=== PATIENT | male | born 1980 | race African-American/Black ===

== ENCOUNTER 2016-12-01 19:55 | Emergency (ER) | payer MEDICAID ==
--- NOTE | 2016-12-01 21:26 | EDPHY ---
H & P Stated Complaint: abd pain, nausea - Personal History Current Tetanus Diphtheria and Acellular Pertussis (TDAP): Yes - Medical/Surgical History Hx Asthma: No Hx Chronic Respiratory Disease: No Hx Diabetes: No Hx Cardiac Disease: No Hx Renal Disease: No Hx Cirrhosis: No Hx Alcoholism: No Hx HIV/AIDS: No Hx Splenectomy or Spleen Trauma: No Other PMH: denies - Social History Smoking Status: Heavy smoker HPI/ROS: CHIEF COMPLAINT: Abdominal pain HISTORY OF PRESENT ILLNESS: This patient is a 35 year old male complaining of nausea onset one hour ago. He has not vomited. He denies fever or diarrhea. He did have mild abdominal pain earlier, but this has since resolved. He denies history of abdominal surgery. He denies eating any usual foods. He lives in [place] but is currently staying at the [facility]. He denies chest pain, shortness of breath, headache, urinary complaints, or other associated symptoms. REVIEW OF SYSTEMS: A ten point review of systems was performed and is negative with the exception of the items mentioned in the HPI. Past medical history: 1. Depression (Wellbutrin) 2. Acid reflux Past surgical history: Denies Family history: Noncontributory Social history: Current every day tobacco use (1 pack/day). Recently moved here from [place]. Staying at the [facility]. General Appearance: Alert. Obese. Vital signs reviewed. Blood pressure 133/92. Eyes: Pupils equal and round, no conjunctival injection, no discharge. Anicteric. ENT, Mouth: Mucous membranes are moist, no oropharyngeal erythema or edema. Neck: No lymphadenopathy, supple. Respiratory: Lungs are clear to auscultation; no wheezes, rales, or rhonchi. Cardiovascular: Regular rate and rhythm; no murmur, rub, or gallop. Gastrointestinal: Mild epigastric tenderness. Abdomen is soft, no masses or organomegaly, bowel sounds normal. Skin: Warm and dry, no rashes on exposed skin, normal color. Back: Nontender to palpation over the thoracolumbar spine. No CVAT. Extremities: No lower extremity edema, no calf tenderness or swelling. Neurological: Alert and oriented. Moving all four extremities easily and equally. Psychiatric: Normal affect. (Pilar Rust) Constitutional: Initial Vital Signs Temperature (C) 37.1 C 10/20/17 20:16 Heart Rate 98 12/01/16 20:16 Respiratory Rate 20 12/01/16 20:16 Blood Pressure 133/92 H 12/01/16 20:16 O2 Sat (%) 97 12/01/16 20:16 O2 Delivery Mode Room Air Allergies/Adverse Reactions: Penicillins Allergy (Verified 12/01/16 20:15) Home Medications: Medication Instructions Recorded Gabapentin 12/01/16 Wellbutrin Sr 12/01/16 Medical Decision Making ED Course/Re-evaluation: 0304: Patient been seen evaluated by mental health. Plan for admission. Patient is voluntary. Depressed. Suicidal. Does not require an M1 hold. He would like bed placement. (Rudolph Acevedo) I took over care of this patient at 7:00 a.m.. This patient is voluntary. He is not on an M1 hold. The patient is here for suicidal ideation and depression. He is to be admitted. He is awaiting placement at this time. 2:30 p.m., patient has been seen and evaluated by Behavioral Health. He will be transferred to a [facility] in [place]. I have filled out the appropriate transfer paperwork. His remaining emergency department course under my care has been uneventful. He was transferred in good condition. (Aleksandra Sullivan) 35 y/o male presents with one hour history of nausea. No vomiting or abdominal pain. Mild epigastric tenderness on exam. Plan to administer 4mg PO Zofran, PO Pepcid. Patient mention to the nurse that he is feeling despondent over his brother's . I re-interviewed him. He tells me that this is the anniversary of his brothers . His brother was killed in 2010 at the age of 27. The patient has a history of depression. He informs me that he was hospitalized at [place] in May. He does not live in [place] but came here hoping that he could distract himself from the sadness that he is feeling today. However, he was not able to do so and he presents tonight feeling depressed and thinking of injuring himself. He has had 1 previous suicide attempt by overdose. He states that he would use this same method. He takes gabapentin and Wellbutrin for depression and is compliant with these medications. He contracts for safety but is requesting to speak with a mental health counselor. He denies the use of alcohol. He occasionally smokes marijuana but does not use other drugs. Labs will be done and mental health consulted. He contracts for safety and is not being placed on an M1 hold. He is here voluntarily. (Pilar Rust) Differential Diagnosis: I considered a differential diagnosis of midepigastric pain that includes but is not limited to gastritis, peptic ulcer disease, pancreatitis, cholecystitis. I do not think that this is his main concern tonight. His abdominal exam is benign. (Pilar Rust) - Data Points Laboratory Results: Laboratory Results 12/01/16 23:47 12/01/16 23:38 Medications Given: Discontinued Medications Bupropion HCl (Wellbutrin Sr) 300 mg PO DAILY AT 10AM [facility] Stop: 05/31/17 12:29 Last Admin: 12/02/16 12:55 Dose: 300 mg Famotidine (Pepcid) 20 mg PO EDNOW ONE Stop: 12/01/16 21:32 Last Admin: 12/01/16 22:01 Dose: 20 mg Gabapentin (Neurontin) 300 mg PO TID [facility] Stop: 05/31/17 15:59 Last Admin: 12/02/16 12:56 Dose: 300 mg Ondansetron HCl (Zofran Odt) 4 mg PO EDNOW ONE Stop: 12/01/16 21:32 Last Admin: 12/01/16 22:01 Dose: 4 mg Departure - Departure Disposition: Other Psych, Not Ever Clinical Impression: Depression Condition: Good Instructions: Acute Nausea and Vomiting (ED), Abdominal Pain (ED) Additional Instructions: 1. Follow up with a primary care provider for further evaluation. We have referred you to a local primary care physician. 2. Take Pepcid or another acid reducing medication, available over the counter, daily for the next two weeks. 3. Return to the emergency department for worsening or changing abdominal pain, uncontrollable vomiting or diarrhea, fever, or other worsening of condition. Referrals: Natalie Ramírez MD [[facility] Primary Care Provider] - As per Instructions Report Scribed for: Pilar Rust Report Scribed by: Maribel Bhatt Date of Report: 12/01/16 Time of Report: 21:37 Physician Review and Approval Statement: 12/01/16 21:26 Portions of this note were transcribed by the medical coding technician. I, Dr. Pilar Rust, personally performed the history, physical exam, and medical decision- making; and confirmed the accuracy of the information in the transcribed note. ( Pilar Rust)
[2016-12-01] MEDS ORDERED: FAMOTIDINE 20 MG TAB PO ONE (21:31)
[2016-12-01] MEDS ORDERED: ONDANSETRON DISINTEGRATING 4 MG TAB PO ONE (21:31)
[2016-12-01 23:54] LABS: % IMMATURE GRANULYOCYTES 0.3 % (0.0-1.1); ABSOLUTE IMMATURE GRANULOCYTES 0.02 10^3/uL (0.00-0.10); ADD DIFF? NO; ADD MORPH? NO; ADD SCAN? NO; ATYPICAL LYMPHOCYTE FLAG 10 (0-99); FRAGMENT RBC FLAG 0 (0-99); HEMATOCRIT 44.6 % (40.0-51.0); LEFT SHIFT FLG 0 (0-99); LIPEMIA HEMOLYSIS FLAG 80 (0-99); MEAN CELL HEMOGLOBIN 28.5 pg (27.9-34.1); MEAN CELL HEMOGLOBIN CONCENTR. 33.6 g/dL (32.4-36.7); MEAN CELL VOLUME 84.8 fL (81.5-99.8); MEAN PLATELET VOLUME 9.7 fL (8.7-11.7); PLATELET CLUMPS FLAG 0 (0-99); PLATELET COUNT 270 10^3/uL (150-400); RED BLOOD CELL COUNT 5.26 10^6/uL (4.40-6.38); RED CELL DISTRIBUTION WIDTH 14.4 % (11.5-15.2)
[2016-12-01 23:54] LABS: ANION GAP 13 mEq/L (8-16); CALCIUM 9.2 mg/dL (8.5-10.4); CARBON DIOXIDE 19 mEq/l (22-31); CHLORIDE 107 mEq/L (97-110); ETHANOL SERUM < 10 mg/dL (0-10); GLOMERULAR FILTRATION RATE > 60; GLUCOSE 95 mg/dL (70-100); SODIUM 139 mEq/L (134-144)
[2016-12-02 00:01] LABS: SPECIMEN HEMOLYSIS 240
[2016-12-02 07:58] VITALS: RESP 18; O2SAT 93
[2016-12-02] MEDS ORDERED: buPROPion SR 150 MG TAB PO SCH ×2 (12:30→18:00)
[2016-12-02] MEDS ORDERED: GABAPENTIN 300 MG CAP ONE (12:49)
[2016-12-02 14:47] VITALS: BP 124/78; PULSE 80; TEMP 97.9
[2016-12-02] MEDS ORDERED: GABAPENTIN 300 MG CAP PO SCH (16:00)
[2016-12-02] MEDS ORDERED: QUEtiapine FUMARATE 50 MG TAB PO SCH (21:00)
== END 2016-12-02 14:45 ==
DX: F31.9 Bipolar disorder, unspecified (principal); F17.200 Nicotine dependence, unspecified, uncomplicated
CPT/HCPCS: 80305; G0480